=== PATIENT | male | born 1970 | race Caucasian/White ===

== ENCOUNTER → 2023-04-02 | Outpatient (CLI) | payer BC ==
[2023-04-02 14:50] LABS: Partial Thromboplastin Time 30.9 sec (22.0-30.0)
[2023-04-02 20:18] LABS: ALT 33 U/L (10-49); AST 22 U/L (14-35); Albumin 4.5 g/dL (3.8-4.9); Albumin/Globulin Ratio 1.73 Ratio (1.60-3.17); Alkaline Phosphatase 94 U/L (41-126); BUN/Creat Ratio 11.14 Ratio (12.00-20.00); Blood Urea Nitrogen 15.6 mg/dL (9.0-27.0); Calcium 9.8 mg/dL (8.7-10.3); Chloride 104 mmol/L (96-109); Globulin 2.6 g/dL (1.6-3.3); Glucose 110 mg/dL (70-110); Potassium 3.9 mmol/L (3.5-5.5); Sodium 141 mmol/L (135-145); Total Bilirubin 0.6 mg/dL (0.3-1.2); Total Protein 7.1 g/dL (6.2-8.2)
[2023-04-02 21:05] LABS: HCT 42.3 % (39.6-50.0); HGB 14.4 g/dL (13.0-17.0); MCH 30.3 pg (27.0-32.0); MCV 88.9 FL (80.0-97.0); Mean Platelet Volume 10.2 FL (9.5-12.2); NRBC Per 100 WBC 0 X 10*3/uL (0.00-0.01); Platelet Count 274 X 10*3/uL (140-440); RBC 4.76 X 10*6/uL (4.40-5.60); RDW 12.8 % (11.5-14.5); WBC 8.7 X 10*3/uL (4.50-10.00)
[2023-04-03 01:15] LABS: Prothrombin Time 10.6 sec (10.0-12.5)
== END | disposition home or self-care (01) ==
LOC: LABPAT 14:01
PROVIDERS: ATTEND Orthopaedic Surgery
DX: Z01.818 Encounter for other preprocedural examination (principal); M16.11 Unilateral primary osteoarthritis, right hip; Z22.322 Carrier or suspected carrier of Methicillin resistant Staphylococcus aureus
CPT/HCPCS: 36415; 80053; 85027; 85610; 85730; 86850; 86900; 86901; 87070; 93005

== ENCOUNTER 2023-04-10 05:35 | Day surgery (SDC) | payer BC ==
[~2023-04-10 05:35] MED LIST: TRANEXAMIC 1,000 MG/100ML-NACL 1,000 MG in SALINE 1 100ML.BAG IVPB PRN
[2023-04-10] MEDS ORDERED: LIDOCAINE 1% (10MG/ML) FOR IV START INTRADERMA PRN (05:43)
[2023-04-10] MEDS: LACTATED RINGERS 1,000 ML IV SCH (06:15)
[2023-04-10] MEDS: MIDAZOLAM 2 MG/2 ML VIAL IV PRN (06:31)
[2023-04-10] MEDS: ACETAMINOPHEN TAB 500 MG TAB PO PRN (06:48)
[2023-04-10] MEDS: DEXAMETHASONE SOD PHOSPHATE 4 MG/ML 1 ML VIAL IV ONE (06:48)
[2023-04-10] MEDS: MELOXICAM 7.5 MG TAB PO PRN (06:49)
[2023-04-10] MEDS: GABAPENTIN 300 MG CAP PO PRN (06:49)
[2023-04-10] MEDS: ONDANSETRON 4 MG/2 ML VIAL IVP ONE (06:49)
[2023-04-10] MEDS ORDERED: PROPOFOL 10 MG/ML 20 ML VIAL IV ONE (07:00)
[2023-04-10] MEDS ORDERED: LIDOCAINE 1% INJ 10MG/ML (20 ML MDV) ONE (07:00)
[2023-04-10] MEDS ORDERED: KETAMINE HCL IN 0.9 % NACL 50 MG/5 ML SYRINGE ONE (07:00)
[2023-04-10] MEDS ORDERED: MIDAZOLAM 2 MG/2 ML VIAL ONE (07:00)
[2023-04-10] MEDS ORDERED: TRANEXAMIC 1,000 MG/100ML-NACL PREMIX BAG ONE (07:00)
[2023-04-10] MEDS ORDERED: fentaNYL (PF) 50 MCG/ML 2 ML AMP IVP PRN (07:00)
[2023-04-10] MEDS ORDERED: ROPIVACAINE 5 MG/ML 30 ML VIAL ONE (07:00)
[2023-04-10] MEDS ORDERED: DEXAMETHASONE SOD PHOSPHATE 4 MG/ML 1 ML VIAL ONE (07:00)
[2023-04-10] MEDS ORDERED: fentaNYL (PF) 50 MCG/ML 2 ML AMP ONE (07:00)
[2023-04-10] MEDS: METOCLOPRAMIDE 5 MG/ML 2 ML VIAL IVP PRN (07:01)
[2023-04-10] MEDS: ceFAZolin 3 GM in SODIUM CHLORIDE 0.9% 100 ML IVPB PRN (07:07)
--- NOTE | 2023-04-10 07:27 | P.ANPRN ---
Procedure Note - Anesthesia - Nerve Block Performed Right Octavio Single Time Out Performed: Yes Date of Procedure: 04/10/23 Procedure Start Time: 06:15 Procedure Stop Time: :25 Location of Patient: PreOp Indication: Acute Post-Operative Pain, Analgesia, Requested by Surgeon Sedation Type: Sedate with meaningful contact maintained Preparation: Sterile Prep Position: Supine Catheter: None Needle Types: Pajunk Needle Gauge: 21 Ultrasound used to visualize needle placement: Yes Ultrasound used to observe medication spread: Yes Injectate: 0.5% Ropivacaine (see comment for volume) (Ropiv 25ml + 4 mg Decadron) Blood Aspirated: No Pain Paresthesia on Injection Noted: No Resistance on Injection: Normal Image Stored and Saved: Yes Events: Uneventful and Well Tolerated
[2023-04-10] MEDS: ROPIVACAINE 5 MG/ML 30 ML VIAL MISCELLANE ONE ×2 (07:40)
[2023-04-10] MEDS: ceFAZolin 1,000 MG in SODIUM CHLORIDE 0.9% 1,000 ML IRRIGATION ONE (07:42)
--- NOTE | 2023-04-10 08:49 | P.OP ---
Date of Procedure: 04/10/23 Preoperative Diagnosis: Severe osteoarthritis right hip Postoperative Diagnosis: Severe osteoarthritis right hip Procedure(s) Performed: Right total hip arthroplasty with a direct anterior approach Implants: [employer] Polarstem standard size 4 with a collar [employer] R3, 3 hole hemispherical acetabular shell, 56 mm [employer] Reflection 6.5 mm cancellus screw, 20 mm 2 [employer] R3, XLPE 20 acetabular liner [employer] Oxinium femoral head 36 mm, +12 All components were press-fit. The articulation is Oxinium on polyethylene. Anesthesia: spinal Surgeon: Buddy Alvarado Slip Tender #1: Miriam Horta Estimated Blood Loss (ml): 250 Pathology: none sent Condition: stable Disposition: PACU Indications for Procedure: After failure of conservative treatment we discussed the surgical and nons urgical treatment options at length. Patient wishes to proceed with a total hip arthroplasty with a direct anterior approach. Complications specific to this procedure were discussed at length, including but not limited to infection, leg length discrepancy, dislocation, nerve injury, and fracture. Covid-19 was also discussed at length with the patient, and they are aware of the current policies and procedures. The patient was given the option of delaying surgery, but they elect to proceed knowing these risks. Patient is aware of all these complications and informed consent was obtained Operative Findings: The operative findings are consistent with severe osteoarthritis of the right hip Description of Procedure: The patient was seen and evaluated in the preoperative area and the consent was reviewed. The operative site was marked with a skin marker. The patient verified the procedure and operative site. A BIANKA block was placed by anesthesia in the preoperative area. The patient was then brought to the operating room and given preoperative antibiotics intravenously. 1 g of Tranexamic acid was also given intravenously. A spinal anesthetic was administered by the anesthesia department. The patient was then placed on the [place] table with the bony prominences well-padded. The hip area was then prepped with a ChloraPrep solution and draped in the usual sterile fashion. A universal timeout was then performed, which confirmed the patient's name, surgical site, ALLERGIES, and procedure being performed on the consent. Next the incision site was located at 1 cm distal and 4 cm lateral to the anterior superior iliac spine. The skin and subcutaneous tissues were sharply incised. Incision was carefully dissected down to the fascia overlying the tensor fascia sylvester muscle. This fascia was then incised in line with the muscle fibers. Care was taken to stay laterally in order to avoid injuring the lateral femoral cutaneous nerve. Next, using blunt finger dissection, the tensor fascia sylvester muscle was dissected off its investing fascia. The muscle was then carefully retracted laterally with a cobra retractor over the lateral neck of the femur. Next, the circumflex vessels were identified and cauterized using the Aquamantis device. The anterior hip capsule was then exposed. The capsule was then opened and an inverted T fashion. The retractors were then placed intracapsularly. The retractors were maintained intracapsular throughout the procedure. The proximal femur was then visualized. Fluoroscopic x-rays were then taken in order to evaluate the preoperative leg lengths. A small amount of traction was placed on the leg. The femoral neck was then osteotomized at the appropriate level above the lesser trochanter. A small wedge of bone was then removed from the remaining femoral head. Next, using a corkscrew the femoral head was removed from the acetabulum. On gross visual inspection, the femoral head had complete loss of articular cartilage and multiple periarticular osteophytes. The femoral head was then measured. Attention was then turned to the acetabulum. The acetabulum was exposed and any remaining labrum was excised. Sequential reaming of the acetabulum was performed using fluoroscopic guidance until there was a good bed of bleeding cancellus bone. When the appropriate size was reached, a trial was then placed. The position and fit of the trial was checked with fluoroscopy. The trial was then removed. Then, using fluoroscopic guidance, the final implant was impacted at 20 of anteversion and 40 of abduction, and fully seated in the acetabulum. 2 screws were then placed in the acetabulum. Again fluoroscopy was used to check position of the screws. Next, the liner was then impacted, with a 20 elevated liner located in the anterior superior quadrant. Component locking was confirmed. Attention was then directed to the femur. With the aid of the [place] table, the femur was externally rotated to approximately 130, extended, and adducted under the opposite leg. A side hook was then placed under the proximal femur, and the side hook elevator was used to elevate the proximal femur while releasing the capsule. Retractors were then placed. A capsular release was performed, as well as a release of the conjoined tendon, which afforded excellent visualization of the proximal femur. Next, a box osteotome was used to lateralize the proximal femur. A hand cigar making supervisor was then used to locate the femoral canal. Sequential broaching was then performed with appropriate size which afforded excellent fixation in the proximal femur. A trial was then placed with appropriate head and neck, and the hip was gently reduced with the aid of the [place] table. Fluoroscopy was then used to check position of the components, as well as to evaluate the leg lengths and offset. The leg lengths and offset were measured as closely as possible to ensure stability of the hip. The hip was then gently dislocated and the trials were then removed. Final implants were then impacted and the hip was again reduced. Final fluoroscopic x-rays confirmed that the components were in anatomic position. The leg lengths and offset were measured and were found to coincide with the trial measurements. The hip was also taken through range of motion, and found to be stable. The hip was then copiously irrigated with antibiotic solution with pulsatile lavage. The hip was then irrigated with Irrisept solution. The soft tissues were then injected with a ropivacaine solution. A second dose of 1 g of Tranexamic acid was also given intravenously. The fascia was then closed with 2-0 strata fix suture. The subcutaneous tissue was closed with 3-0 Vicryl. The subcuticular tissue was closed with 3-0 strata fix suture. The skin was then closed with Exofin skin glue. After the glue and dried, and Optifoam silver impregnated dressing was applied. The patient was then transferred to the recovery room in stable condition. The events administrative assistant KM Grider was required due to the complexity of surgery, and the need for skilled surgical technician for positioning, draping, exposure, retraction, and closure of the wound.
[2023-04-10] MEDS: LACTATED RINGERS 1,000 ML IV ONE (08:58)
--- NOTE | 2023-04-10 09:08 | XR ---
Fluoroscopy INDICATION: Pain FINDINGS: Fluoroscopy time: 1 minute 23.1 seconds. Total dose area product (DAP) in uGy*m?, mGy*cm? (or similar): 8.17 Images obtained: 4. IMPRESSION: 1. Documentation of fluoroscopy.
[2023-04-10] MEDS ORDERED: HYDROmorphone 0.5 MG/0.5 ML SYRINGE IVP PRN ×2 (09:20)
[2023-04-10] MEDS ORDERED: MAGNESIUM HYDROXIDE 2,400 MG/30 ML CUP PO PRN (09:20)
[2023-04-10] MEDS ORDERED: HYDROmorphone 1 MG/ML 1 ML SYRINGE IVP PRN (09:20)
[2023-04-10] MEDS ORDERED: ONDANSETRON 4 MG/2 ML VIAL IVP PRN (09:20)
[2023-04-10] MEDS ORDERED: NALOXONE 0.4 MG/ML 1 ML VIAL IV PRN (09:20)
[2023-04-10] MEDS: HYDROmorphone 0.5 MG/0.5 ML SYRINGE IVP PRN (09:35)
--- NOTE | 2023-04-10 09:53 | XR ---
EXAMINATION TYPE: XR Hip Limited RT DATE OF EXAM: 04/10/2023 9:33 AM CLINICAL INDICATION:Male, 52 years old with history of OR; [facility] COMPARISON: None. TECHNIQUE: XR Hip Limited RT; hip was examined in the frontal and lateral projections and a AP pelvis . FINDINGS: Post arthroplasty changes, hardware is intact, alignment is appropriate. No evidence of fra cture. Postoperative changes of the soft tissues with subcutaneous gas. No evidence of any acute osse ous pathology or joint dislocation. IMPRESSION: Hip arthroplasty with hardware intact and in appropriate alignment. No acute fracture.
[2023-04-10] MEDS: SODIUM CHLORIDE 0.9% 1,000 ML IV SCH (13:52)
[2023-04-10] MEDS: HYDROcodone/APAP 7.5-325MG 1 EACH TAB PO PRN (14:12)
[2023-04-10] MEDS: ceFAZolin 3 GM in SODIUM CHLORIDE 0.9% 100 ML IVPB SCH (15:48)
[2023-04-10] MEDS: ASPIRIN 325 MG TAB PO SCH (20:06)
[2023-04-10] MEDS: SENNOSIDES-DOCUSATE SODIUM 1 EACH TAB PO SCH (20:06)
--- NOTE | 2023-04-10 21:49 | CONS ---
CONSULTATION REASON FOR CONSULTATION: Advice regarding hyperlipidemia, other medical issues. HISTORY OF PRESENT ILLNESS: This is a 52-year-old gentleman with a past medical history of DJD, history of sleep apnea, hyperlipidemia, underwent right total hip joint arthroplasty. There is no history of any fever or rigors, no history of headache or loss of consciousness. PAST MEDICAL HISTORY: Reviewed include hyperlipidemia, DJD, sleep apnea, rest of the history and rest of the chart is also reviewed. HOME MEDICATIONS: Lipitor, dose and rest of medications noted. ALLERGIES: Penicillin. FAMILY HISTORY: No history of heart disease or strokes in the family. SOCIAL HISTORY: Previous history of smoking. REVIEW OF SYSTEMS: A 14-point review is negative except as mentioned. PHYSICAL EXAMINATION: VITAL SIGNS: Pulse 74, blood pressure 160/90, respirations 18. HEENT: Conjunctivae normal. NECK: No jugular venous distention. CARDIOVASCULAR: S1, S2. RESPIRATIONS: Diminished at the bases. ABDOMEN: Soft, nontender. LEGS: Status post right total hip joint arthroplasty. NERVOUS SYSTEM: Nonfocal. SKIN: No ulcer, rash, bleeding. JOINTS: No active deforming arthropathy. LABORATORY DATA: Not available, the preop labs are normal. ASSESSMENT: 1. Status post right total hip joint arthroplasty. 2. Hyperlipidemia. 3. Degenerative joint disease. 4. Sleep apnea. RECOMMENDATIONS AND DISCUSSION: This 52-year-old gentleman presented after surgery is medically stable, I would recommend to resume the home medications. DVT prophylaxis. Incentive spirometry. Pain management. Follow the patient closely. The patient may be asked to follow with primary physician after discharge. MMODL / IJN: [id number] /
[2023-04-11] MEDS: HYDROcodone/APAP 7.5-325MG 1 EACH TAB PO PRN (05:25)
[2023-04-11] MEDS: ATORVASTATIN 10 MG TAB PO SCH (08:29)
[2023-04-11 09:07] VITALS: BP 174/72; PULSE 77; RESP 17; TEMP 98.7
--- NOTE | 2023-04-11 09:33 | P.DS ---
Providers Expected date of discharge: 04/11/23 Attending physician: Buddy Alvarado Consults: 04/10/23 09:20 Consult Physician Routine Consulting Provider: Dona Nolen Consult Reason/Comments: medical management Do you want consulting provider notified?: Yes Primary care physician: Stated None - Discharge Diagnosis(es) (1) Osteoarthritis of right hip Current Visit: Yes Status: Acute (2) S/P total hip arthroplasty Current Visit: Yes Status: Acute Hospital Course: This is a 52-year-old male with known history of degenerative arthritis of the right hip. The patient presented for evaluation as an outpatient. After discussion and consideration patient elects to proceed with total hip arthroplasty. The patient is seen preoperatively by Dr. Alvarado and medically cleared for surgery by their primary care physician. Patient is admitted to [facility] on 04/10/2023 for total hip arthroplasty. The procedure is performed without complication or sequelae. The patient is doing well postoperatively. Labs and vital signs are stable on day of discharge. On day of discharge patient's hip incision is healing well. There is minimal erythema. There is no drainage noted at this time. There is minimal soft tissue swelling to the hip and thigh. Patient has full foot and ankle motion without difficulty or pain. Calf is soft and nontender to palpation. Neurovascular status to the right lower extremity is intact. Patient is discharged home in good condition. Please see med rec for accurate list of home medications. Plan - Discharge Summary Discharge Rx Participant: No New Discharge Prescriptions: New Sennosides [Senokot] 2 tab PO DAILY PRN #60 tablet PRN Reason: Constipation Aspirin 325 mg PO BID #60 tab HYDROcodone/APAP 7.5-325MG [[place] 7.5-325] 1 - 2 tab PO Q6H PRN #32 tab PRN Reason: Pain Continue Ibuprofen [Advil] 400 mg PO DIRECTED PRN PRN Reason: Pain Unk Vitamin C 1 tab PO DAILY Unk Lipitor 1 tab PO DAILY Unk Multi Vitamin 1 tab PO DAILY Discharge Medication List Ibuprofen [Advil] 400 mg PO DIRECTED PRN 04/03/23 [History] Unk Lipitor 1 tab PO DAILY 04/03/23 [History] Unk Multi Vitamin 1 tab PO DAILY 04/03/23 [History] Unk Vitamin C 1 tab PO DAILY 04/03/23 [History] Aspirin 325 mg PO BID #60 tab 04/10/23 [Rx] HYDROcodone/APAP 7.5-325MG [[place] 7.5-325] 1 - 2 tab PO Q6H PRN #32 tab 04/10/23 [Rx] Sennosides [Senokot] 2 tab PO DAILY PRN #60 tablet 04/10/23 [Rx] Follow up Appointment(s)/Referral(s): Bryanna Turner FNPBC [Family Provider] - 1 Week Buddy Alvarado DO [Doctor of Osteopathic Medicine] - 2 Weeks Activity/Diet/Wound Care/Special Instructions: Weightbearing as tolerated with walker. Leave dressing intact. Dressing may be removed by home care nurse or by patient in 7 days. Then change dressing twice daily until follow up. May shower with initial dressing intact and after removal. If dressing become saturated, please remove. Please take aspirin 325mg twice daily for 30 days to prevent blood clots. Recommend use of compression stockings daily until follow up to help prevent swelling and blood clots. May remove at night before sleeping. Please follow-up with [facility] in 2 weeks and call with any questions or concerns, . Discharge Disposition: HOME WITH HOME HEALTH SERVICES
[2023-04-11 11:07] LABS: Basophils # (A) 0.02 X 10*3/uL (0.00-0.10); Basophils % (A) 0.1 %; Eosinophils # (A) 0.01 X 10*3/uL (0.04-0.35); Eosinophils % (A) 0.1 %; HCT 35.8 % (39.6-50.0); HGB 12.2 g/dL (13.0-17.0); Lymphocytes % (A) 10.9 %; MCH 30.6 pg (27.0-32.0); MCHC 34.1 g/dL (32.0-37.0); MCV 89.7 FL (80.0-97.0); Mean Platelet Volume 10.3 FL (9.5-12.2); Monocytes # (A) 0.98 X 10*3/uL (0.20-1.00); Monocytes % (A) 5.9 %; NRBC Per 100 WBC 0 X 10*3/uL (0.00-0.01); Neutrophils # (A) 13.59 X 10*3/uL (1.80-7.70); Neutrophils % (A) 82.5 %; Platelet Count 248 X 10*3/uL (140-440); RBC 3.99 X 10*6/uL (4.40-5.60); RDW 12.7 % (11.5-14.5); WBC 16.48 X 10*3/uL (4.50-10.00)
--- NOTE | 2023-04-11 12:43 | PN ---
PROGRESS NOTE DATE OF SERVICE: 04/11/2023 SUBJECTIVE: This is a 52-year-old gentleman who was admitted after right total hip joint arthroplasty improving. No chest pain, no palpitations, no fever. OBJECTIVE: VITAL SIGNS: Pulse 77, blood pressure 170/70, respirations 17. CHEST: Clear to auscultation. ABDOMEN: Soft, status post surgery. LABORATORY DATA: Reviewed. ASSESSMENT: 1. Status post right total hip joint arthroplasty. 2. Hyperlipidemia. 3. Degenerative joint disease. 4. Sleep apnea. RECOMMENDATIONS: Recommended to continue current management, continue symptomatic treatment, otherwise white count is elevated, possibly reactive. Recommended close followup with primary physician. Rest of the recommendations per Orthopedic surgery. DVT prophylaxis. MMODL / IJN: [id number] /
== END 2023-04-11 12:05 | disposition home health service (06) ==
LOC: OR 05:35 → 4SSUR 09:05 → EDSTATUS 11:10 → OR 04-11 12:05
PROVIDERS: ATTEND Orthopaedic Surgery
DX: M16.11 Unilateral primary osteoarthritis, right hip (principal); G89.18 Other acute postprocedural pain; E78.5 Hyperlipidemia, unspecified; F10.90 Alcohol use, unspecified, uncomplicated; Z87.891 Personal history of nicotine dependence; Z88.0 Allergy status to penicillin; Z79.899 Other long term (current) drug therapy; Z98.890 Other specified postprocedural states
CPT/HCPCS: 97161; 97166; 64447; 85025; 73501; 27130; C1776; J2250; J1100; J2765; J0690 ×2; J2405; J2795; J1170